=== PATIENT | male | born 1980 | race African-American/Black ===

== ENCOUNTER 2022-03-05 17:40 | Emergency (ER) | payer OTHER ==
[~2022-03-05] VITALS: Ht 190.5 cm; Wt 116.0 kg
[2022-03-05 17:42] VITALS: BP 151/94
[2022-03-05 18:22] LABS: BASOPHILS % 0.4 % (0.0-2.0); EOSINOPHILS % 1.9 % (0.0-5.0); HEMATOCRIT. 43.7 % (42.0-52.0); HEMOGLOBIN. 14.9 g/dL (14.0-18.0); LYMPHOCYTES % 27.6 % (20.0-50.0); MEAN CORPUSCULAR VOLUME 76.2 fL (80.0-94.0); MEAN PLATELET VOLUME 7.7 fl (7.4-10.4); MONOCYTES % 8.3 % (2.0-8.0); NEUTROPHILS % 61.8 % (40.0-76.0); PLATELET 250 x1000/uL (130-400); RED BLOOD CELL COUNT 5.73 mill/uL (4.7-6.1); RED CELL DISTRIBUTION WIDTH 14.6 % (11.6-14.6)
[2022-03-05 18:38] LABS: CHLORIDE 108 mEq/L (98-107)
[2022-03-05] MEDS ORDERED: IBUP-2028 MT (19:17)
[2022-03-05] MEDS ORDERED: METH-653 MT (19:17)
== END 2022-03-05 19:23 | disposition home or self-care (01) ==
LOC: ER 17:40
DX: R07.89 Other chest pain (principal); M79.602 Pain in left arm
CPT/HCPCS: 36415; 71045; 80053; 83880; 84484; 85025; 93005; 99285